=== PATIENT | female | born 1955 | race African-American/Black ===

== ENCOUNTER 2018-02-22 12:14 | Emergency (ER) | payer SELFPAY ==
[~2018-02-22] VITALS: Ht 157.5 cm; Wt 54.0 kg
[2018-02-22 13:20] LABS: BASOPHILS % 0.6 % (0.0-2.0); EOSINOPHILS % 0.7 % (0.0-5.0); HEMOGLOBIN. 10.9 g/dL (12.0-16.0); LYMPHOCYTES % 32.2 % (20.0-50.0); MEAN CORPUSCULAR HEMOGLOBIN 34.3 pg (28.0-32.0); MEAN PLATELET VOLUME 8.3 fl (7.4-10.4); MONOCYTES % 10.9 % (2.0-8.0); NEUTROPHILS % 55.6 % (40.0-76.0); PLATELET 59 x1000/uL (130-400); RED BLOOD CELL COUNT 3.17 mill/uL (4.2-5.4); RED CELL DISTRIBUTION WIDTH 14.8 % (11.6-14.6)
[2018-02-22 13:32] LABS: CHLORIDE 118 mEq/L (98-107)
[2018-02-22 13:47] LABS: ETHANOL BLOOD 337 mg/dL
[2018-02-22 14:34] LABS: CLARITY URINE CLEAR (CLEAR); COLOR URINE YELLOW (YELLOW); KETONES URINE NEGATIVE (NEGATIVE); LEUKOCYTE ESTERASE URINE NEGATIVE (NEGATIVE); NITRITE URINE NEGATIVE (NEGATIVE); OCCULT BLOOD URINE NEGATIVE (NEGATIVE); PH URINE 6.5 (4.5-8.0); PROTEIN URINE NEGATIVE (NEGATIVE); SPECIFIC GRAVITY URINE 1.007 (1.005-1.030); UROBILINOGEN URINE 0.2 E.U./dL (0.2-1.0)
[2018-02-22 14:58] LABS: *AMPHETAMINES SCREEN URINE NEGATIVE (NEGATIVE); *BARBITURATES SCREEN URINE NEGATIVE (NEGATIVE); *BENZODIAZEPINES SCREEN URINE NEGATIVE (NEGATIVE); *COCAINE SCREEN URINE NEGATIVE (NEGATIVE); CANNABINOID URINE SCREEN NEGATIVE (NEGATIVE); METHADONE URINE SCREEN NEGATIVE (NEGATIVE); OPIATES URINE SCREEN NEGATIVE (NEGATIVE); PHENCYCLIDINE URINE SCREEN NEGATIVE (NEGATIVE)
[2018-02-23] MEDS ORDERED: ACETAMINOPHEN 325MG TABLET PO ONE (08:30)
[2018-02-23 09:16] VITALS: BP 164/68
== END 2018-02-23 18:25 | disposition home or self-care (01) ==
LOC: ER 13:02
DX: F10.129 Alcohol abuse with intoxication, unspecified (principal)
CPT/HCPCS: 36415; 80053; 80305; 80307; 80329; 81003; 84443; 85025; 99284; G0482

== ENCOUNTER 2018-03-28 21:10 | Emergency (ER) | payer SELFPAY ==
[~2018-03-28] VITALS: Ht 167.6 cm; Wt 61.2 kg
[2018-03-29] MEDS ORDERED: ACETAMINOPHEN 325MG TABLET PO STA (06:34)
[2018-03-29 07:07] LABS: CHLORIDE 106 mEq/L (98-107)
[2018-03-29 07:08] LABS: BASOPHILS % 0.7 % (0.0-2.0); EOSINOPHILS % 0.6 % (0.0-5.0); HEMATOCRIT. 33.8 % (36.0-48.0); HEMOGLOBIN. 11.7 g/dL (12.0-16.0); LYMPHOCYTES % 47.4 % (20.0-50.0); MEAN CORPUSCULAR HEMOGLOBIN 34.7 pg (28.0-32.0); MEAN CORPUSCULAR VOLUME 100.2 fL (81.0-99.0); MEAN PLATELET VOLUME 8.9 fl (7.4-10.4); MONOCYTES % 8.2 % (2.0-8.0); NEUTROPHILS % 43.1 % (40.0-76.0); PLATELET 52 x1000/uL (130-400); RED BLOOD CELL COUNT 3.38 mill/uL (4.2-5.4); RED CELL DISTRIBUTION WIDTH 13.4 % (11.6-14.6)
[2018-03-29 07:35] LABS: KETONES URINE NEGATIVE (NEGATIVE); LEUKOCYTE ESTERASE URINE NEGATIVE (NEGATIVE); NITRITE URINE NEGATIVE (NEGATIVE); OCCULT BLOOD URINE 2+ (NEGATIVE); PROTEIN URINE NEGATIVE (NEGATIVE); SPECIFIC GRAVITY URINE 1.012 (1.005-1.030)
[2018-03-29 07:39] LABS: CLARITY URINE SL HAZY (CLEAR); COLOR URINE DARK YELLOW (YELLOW)
[2018-03-29 08:06] LABS: *AMPHETAMINES SCREEN URINE NEGATIVE (NEGATIVE)
[2018-03-29 08:07] LABS: *BARBITURATES SCREEN URINE NEGATIVE (NEGATIVE); *BENZODIAZEPINES SCREEN URINE NEGATIVE (NEGATIVE); *COCAINE SCREEN URINE NEGATIVE (NEGATIVE); METHADONE URINE SCREEN NEGATIVE (NEGATIVE)
[2018-03-29 08:08] LABS: CANNABINOID URINE SCREEN PRESUMTIVE POSITIVE (NEGATIVE); OPIATES URINE SCREEN NEGATIVE (NEGATIVE); PHENCYCLIDINE URINE SCREEN NEGATIVE (NEGATIVE)
[2018-03-29] MEDS ORDERED: ACETAMINOPHEN 325MG TABLET PO ONE (11:00)
[2018-03-29 16:15] VITALS: BP 127/82
== END 2018-03-29 16:24 | disposition home or self-care (01) ==
LOC: ER 21:26
DX: R10.84 Generalized abdominal pain (principal); F10.10 Alcohol abuse, uncomplicated; E11.9 Type 2 diabetes mellitus without complications; F17.200 Nicotine dependence, unspecified, uncomplicated; I10 Essential (primary) hypertension
CPT/HCPCS: 36415; 80053; 80305; 81003; 83690; 85025; 99284; G0482; Z7610

== ENCOUNTER 2018-03-29 23:14 | Emergency (ER) | payer MEDICAID ==
[~2018-03-29] VITALS: Ht 160 cm; Wt 65.0 kg
[2018-03-30 03:18] LABS: CLARITY URINE CLEAR (CLEAR); COLOR URINE YELLOW (YELLOW); KETONES URINE NEGATIVE (NEGATIVE); LEUKOCYTE ESTERASE URINE NEGATIVE (NEGATIVE); NITRITE URINE NEGATIVE (NEGATIVE); OCCULT BLOOD URINE NEGATIVE (NEGATIVE); PROTEIN URINE NEGATIVE (NEGATIVE); SPECIFIC GRAVITY URINE 1.008 (1.005-1.030)
[2018-03-30 04:19] LABS: CHLORIDE 109 mEq/L (98-107)
[2018-03-30 04:22] LABS: BASOPHILS % 0.4 % (0.0-2.0); EOSINOPHILS % 0.5 % (0.0-5.0); ETHANOL BLOOD 272 mg/dL; HEMATOCRIT. 30.3 % (36.0-48.0); HEMOGLOBIN. 10.6 g/dL (12.0-16.0); LYMPHOCYTES % 51.5 % (20.0-50.0); MEAN CORPUSCULAR HEMOGLOBIN 36.6 pg (28.0-32.0); MEAN CORPUSCULAR VOLUME 104.6 fL (81.0-99.0); MEAN PLATELET VOLUME 9.4 fl (7.4-10.4); MONOCYTES % 8.5 % (2.0-8.0); NEUTROPHILS % 39.1 % (40.0-76.0); RED CELL DISTRIBUTION WIDTH 13.1 % (11.6-14.6)
[2018-03-30 04:30] LABS: *AMPHETAMINES SCREEN URINE NEGATIVE (NEGATIVE); *BARBITURATES SCREEN URINE NEGATIVE (NEGATIVE); *BENZODIAZEPINES SCREEN URINE NEGATIVE (NEGATIVE)
[2018-03-30 04:31] LABS: *COCAINE SCREEN URINE NEGATIVE (NEGATIVE); CANNABINOID URINE SCREEN PRESUMTIVE POSITIVE (NEGATIVE); METHADONE URINE SCREEN NEGATIVE (NEGATIVE); OPIATES URINE SCREEN NEGATIVE (NEGATIVE); PHENCYCLIDINE URINE SCREEN NEGATIVE (NEGATIVE)
[2018-03-30] MEDS ORDERED: KETOROLAC 60MG/2ML VIAL IM STA (07:27)
[2018-03-30] MEDS ORDERED: HYDROCODONE/ACETAMINOPHEN 5/325MG TABLET PO SCH (08:00)
[2018-03-30 14:00] VITALS: BP 132/72
[2018-03-31 17:12] LABS: PLATELET 40 x1000/uL (130-400)
== END 2018-03-30 15:33 | disposition left against medical advice (07) ==
LOC: ER 03-30 01:09
DX: M16.0 Bilateral primary osteoarthritis of hip (principal); F10.129 Alcohol abuse with intoxication, unspecified; Y90.8 Blood alcohol level of 240 mg/100 ml or more; D69.6 Thrombocytopenia, unspecified; R10.84 Generalized abdominal pain; R03.0 Elevated blood-pressure reading, without diagnosis of hypertension; R42 Dizziness and giddiness; F12.90 Cannabis use, unspecified, uncomplicated; D61.818 Other pancytopenia; M51.36 Other intervertebral disc degeneration, lumbar region; Z59.0 Homelessness; Z90.710 Acquired absence of both cervix and uterus; Z86.59 Personal history of other mental and behavioral disorders
CPT/HCPCS: 36415; 72100; 73522; 80048; 80305; 80307; 80329; 81003; 85025; 93005; 96372; 99285; G0482; J1885

== ENCOUNTER 2018-06-18 16:40 | Inpatient (IN) | payer MEDICAID ==
[~2018-06-18] VITALS: Ht 162.6 cm; Wt 68.5 kg
[2018-06-18] MEDS ORDERED: SODIUM CHLORIDE 0.9% 1,000 ML IV ONE (17:03)
[2018-06-18] MEDS ORDERED: ONDANSETRON HCL 4MG/2ML VIAL IV STA (17:03)
[2018-06-18 17:46] LABS: HEMATOCRIT. 34.8 % (36.0-48.0); HEMOGLOBIN. 11.4 g/dL (12.0-16.0); MEAN CORPUSCULAR HEMOGLOBIN 35.1 pg (28.0-32.0); MEAN CORPUSCULAR VOLUME 107.5 fL (81.0-99.0); MEAN PLATELET VOLUME 10.1 fl (7.4-10.4); RED BLOOD CELL COUNT 3.24 mill/uL (4.2-5.4); RED CELL DISTRIBUTION WIDTH 14.5 % (11.6-14.6)
[2018-06-18 17:48] LABS: CHLORIDE 96 mEq/L (98-107)
[2018-06-18 17:49] LABS: PLATELET 29 x1000/uL (130-400)
[2018-06-18 17:52] LABS: AMMONIA 119 uMol/L (<32)
[2018-06-18 17:53] LABS: ETHANOL BLOOD 192 mg/dL
[2018-06-18 17:57] LABS: CREATINE KINASE 89 IU/L (26-192)
[2018-06-18 18:01] LABS: CARBAMAZEPINE < 0.5 ug/mL (4-12); PHENOBARBITAL < 2.1 ug/mL (15.0-40.0); VALPROIC ACID < 3.0 ug/mL (50-100)
[2018-06-18 18:11] LABS: PLATELET ESTIMATE MARKEDLY DECREASED
[2018-06-18 19:18] LABS: CLARITY URINE CLOUDY (CLEAR); COLOR URINE DARK YELLOW (YELLOW); KETONES URINE 1+ (NEGATIVE); LEUKOCYTE ESTERASE URINE 2+ (NEGATIVE); NITRITE URINE NEGATIVE (NEGATIVE); OCCULT BLOOD URINE TRACE (NEGATIVE); PROTEIN URINE 1+ (NEGATIVE); SPECIFIC GRAVITY URINE 1.016 (1.005-1.030)
[2018-06-18 19:21] LABS: PROTHROMBIN TIME > 100.0 sec (9.4-11.6)
[2018-06-18 19:23] LABS: INR > 10.0
[2018-06-18 19:46] LABS: *AMPHETAMINES SCREEN URINE NEGATIVE (NEGATIVE); *BARBITURATES SCREEN URINE NEGATIVE (NEGATIVE); *BENZODIAZEPINES SCREEN URINE NEGATIVE (NEGATIVE)
[2018-06-18 19:47] LABS: *COCAINE SCREEN URINE NEGATIVE (NEGATIVE); CANNABINOID URINE SCREEN PRESUMTIVE POSITIVE (NEGATIVE); METHADONE URINE SCREEN NEGATIVE (NEGATIVE); OPIATES URINE SCREEN NEGATIVE (NEGATIVE); PHENCYCLIDINE URINE SCREEN NEGATIVE (NEGATIVE)
[2018-06-18] MEDS ORDERED: PHYTONADIONE 10MG/ML AMP IM ONE (20:15)
[2018-06-18] MEDS ORDERED: CEFTRIAXONE 1 G PREMIX 50 ML IV ONE (20:15)
[2018-06-19] VITALS (103 sets, daily range): BP systolic 41–172; BP diastolic 17–109
[2018-06-19] MEDS ORDERED: MORPHINE SULFATE 4 MG/ML CPJ (NOT FOR IM USE) IV PRN (01:45)
[2018-06-19] MEDS ORDERED: ONDANSETRON 4MG ODT PO PRN ×2 (01:45→03:00)
[2018-06-19] MEDS ORDERED: ONDANSETRON HCL 4MG/2ML VIAL IV PRN ×3 (01:45→03:00)
[2018-06-19] MEDS ORDERED: SODIUM CHL 0.9% + KCL 20MEQ/L 1,000 ML IV SCH (03:00)
[2018-06-19] MEDS ORDERED: DEXTROSE 50% WATER 50ML SYRINGE IV PRN ×5 (03:30→12:15)
[2018-06-19] MEDS ORDERED: DEXTROSE 50% WATER 50ML SYRINGE IV STA (03:30)
[2018-06-19] MEDS ORDERED: DEXTROSE 50% WATER 50ML SYRINGE IV ONE ×2 (03:35→12:10)
[2018-06-19] MEDS ORDERED: DEXTROSE 50% WATER 50ML SYRINGE IV SCH (03:42)
[2018-06-19 04:02] LABS: BG BASE EXCESS -22.5 mmol/L (-2.0-2.0); BG CARBOXYHEMOGLOBIN 0.3 % (0.5-1.5); BG DEOXYHEMOGLOBIN 0.2 % (0.0-5.0); BG FRACTION INSPIRED OXYGEN 100; BG METHEMOGLOBIN 0.3 % (0.0-1.5); BG OXYGEN SATURATION 99.8 % (92.0-98.5); BG OXYHEMOGLOBIN 99.2 % (94.0-97.0); BG PCO2 28.5 mmHg (35.0-45.0); BG PH 7.011 (7.350-7.450); BG PO2 525.8 mmHg (75.0-100.0); BG SAMPLE SITE RIGHT FEMORAL; BG TIDAL VOLUME(mL) 500 mL; BG TOTAL HEMOGLOBIN 8.8 g/dL (12.0-18.0); BG VENT MODE VENT - A/C; BG VENT RATE 14 set
[2018-06-19] MEDS ORDERED: PROPOFOL 10MG/ML 100ML 100 ML IV PRN (04:30)
[2018-06-19] MEDS ORDERED: SODIUM BICARBONATE 8.4% 1 MEQ/ML 50ML SYR IV SCH (04:30)
[2018-06-19] MEDS: NOREPINEPHRINE 8 MG in DEXT 5% WATER 250 ML IV PRN ×2 (05:23→08:44)
[2018-06-19 05:55] LABS: HEMOGLOBIN 8.7 g/dL (12.0-16.0); MEAN CORPUSCULAR HEMOGLOBIN 35.9 pg (28.0-32.0); MEAN CORPUSCULAR VOLUME 116.2 fL (81.0-99.0); RED BLOOD CELL COUNT 2.41 mill/uL (4.2-5.4); RED CELL DISTRIBUTION WIDTH 15.5 % (11.6-14.6)
[2018-06-19] MEDS ORDERED: SODIUM BICARBONATE 150 MEQ in DEXTROSE 5% WATER 1,000 ML IV ONE (06:00)
[2018-06-19] MEDS ORDERED: SODIUM BICARBONATE 150 MEQ in DEXTROSE 5% WATER 1,000 ML IV SCH (06:00)
[2018-06-19 06:24] LABS: PLATELET 27 x1000/uL (130-400)
[2018-06-19] MEDS ORDERED: PANTOPRAZOLE 40MG DR TABLET PO SCH (06:30)
[2018-06-19 06:32] LABS: CHLORIDE 97 mEq/L (98-107)
[2018-06-19] MEDS ORDERED: PHENYLEPHRINE 20 MG in DEXT 5% WATER 248 ML IV PRN (06:54)
[2018-06-19 07:28] LABS: BG BASE EXCESS -19.1 mmol/L (-2.0-2.0); BG CARBOXYHEMOGLOBIN 0.2 % (0.5-1.5); BG DEOXYHEMOGLOBIN 1.1 % (0.0-5.0); BG METHEMOGLOBIN 0.3 % (0.0-1.5); BG OXYGEN SATURATION 98.9 % (92.0-98.5); BG OXYHEMOGLOBIN 98.4 % (94.0-97.0); BG PCO2 23.3 mmHg (35.0-45.0); BG PH 7.154 (7.350-7.450); BG PO2 189.2 mmHg (75.0-100.0); BG SAMPLE SITE RIGHT RADIAL; BG TIDAL VOLUME(mL) 500 mL; BG VENT MODE VENT - A/C; BG VENT RATE 22 set
[2018-06-19] MEDS ORDERED: SODIUM BICARBONATE 8.4% 1 MEQ/ML 50ML SYR IV NR ×4 (07:45→18:30)
[2018-06-19] MEDS ORDERED: FOLIC ACID 1MG TABLET PO SCH (09:00)
[2018-06-19] MEDS ORDERED: THIAMINE HCL 100MG TABLET PO SCH (09:00)
[2018-06-19] MEDS ORDERED: MULTIVITAMINS,THER W-MINERALS TABLET PO SCH (09:00)
[2018-06-19] MEDS ORDERED: LIDOCAINE HCL 1% 20ML VIAL (Pyxis) INJ ONE (09:37)
[2018-06-19] MEDS ORDERED: VASOPRESSIN 10 UNIT in SODIUM CHLORIDE 0.9% 99.5 ML IV PRN (09:45)
[2018-06-19] MEDS: PHENYLEPHRINE 40 MG in DEXT 5% WATER 246 ML IV PRN ×4 (10:12→22:03)
[2018-06-19] MEDS: NOREPINEPHRINE 32 MG in DEXT 5% WATER 468 ML IV PRN (10:18)
[2018-06-19] MEDS: VASOPRESSIN 10 UNIT in SODIUM CHLORIDE 0.9% 99.5 ML IV PRN ×3 (10:25→18:08)
[2018-06-19] MEDS ORDERED: LEVOFLOXACIN 500MG PREMIX 100 ML IV SCH (11:00)
[2018-06-19] MEDS: EPINEPHRINE 1 MG in SODIUM CHLORIDE 0.9% 249 ML IV PRN ×3 (11:09→22:43)
[2018-06-19] MEDS ORDERED: VANCOMYCIN 1250MG in DEXTROSE 5% WATER 250ML IV NR (12:00)
[2018-06-19] MEDS ORDERED: SODIUM BICARBONATE 7.5% 0.9 MEQ/ML 50ML SYR IV ONE ×2 (12:07→12:10)
[2018-06-19] MEDS ORDERED: EPINEPHRINE 0.1MG/ML (1:10,000) 10ML SYR ONE ×2 (12:07→12:10)
[2018-06-19 12:09] LABS: BG BASE EXCESS -11.8 mmol/L (-2.0-2.0); BG CARBOXYHEMOGLOBIN 1.1 % (0.5-1.5); BG DEOXYHEMOGLOBIN 2.1 % (0.0-5.0); BG HCO3 ACT 12.9 mmol/L (22.0-26.0); BG METHEMOGLOBIN 0.7 % (0.0-1.5); BG OXYGEN SATURATION 97.9 % (92.0-98.5); BG OXYHEMOGLOBIN 96.1 % (94.0-97.0); BG PCO2 24.3 mmHg (35.0-45.0); BG PH 7.344 (7.350-7.450); BG PO2 135.4 mmHg (75.0-100.0); BG SAMPLE SITE RIGHT RADIAL; BG TIDAL VOLUME(mL) 500 mL; BG VENT MODE VENT - A/C
[2018-06-19] MEDS ORDERED: MAGNESIUM SULFATE 4G IN WATER 100ML PREMIX IV ONE (12:10)
[2018-06-19] MEDS: BLOOD SUGAR DIAGNOSTIC STRIP TEST SCH ×2 (12:20→20:25)
[2018-06-19] MEDS: PANTOPRAZOLE SODIUM 40 MG/VIAL IV SCH ×2 (12:23→20:25)
[2018-06-19 14:00] LABS: PROTHROMBIN TIME > 100.0 sec (9.4-11.6)
[2018-06-19 14:02] LABS: HEMATOCRIT 12.7 % (36.0-48.0); HEMOGLOBIN 4.2 g/dL (12.0-16.0); INR > 10.0
[2018-06-19] MEDS: METRONIDAZOLE 500 MG PREMIX 100 ML IV SCH ×2 (14:10→22:03)
[2018-06-19] MEDS ORDERED: NORMAL SALINE 0.9% 10 ML SYR ONE (14:46)
[2018-06-19] MEDS ORDERED: VECURONIUM BROMIDE 10 MG/VIAL IV ONE (14:46)
[2018-06-19] MEDS ORDERED: CEFEPIME 2,000 MG in DEXT 5% WATER 100 ML IV SCH (16:30)
[2018-06-19] MEDS: SODIUM BICARBONATE 150 MEQ in DEXTROSE 5% WATER 1,000 ML IV SCH ×2 (16:35→23:22)
[2018-06-19] MEDS: POTASSIUM CHLORIDE INJ 40 MEQ in DEXT 5% WATER 250 ML IV SCH ×2 (16:36→20:59)
[2018-06-19] MEDS: OCTREOTIDE 1,000 MCG in SODIUM CHLORIDE 0.9% 100 ML IV SCH (16:37)
[2018-06-19] MEDS ORDERED: LACTULOSE 20G/30ML UDC PO SCH (17:00)
[2018-06-19] MEDS ORDERED: AMIKACIN SULFATE 440 MG in SODIUM CHLORIDE 0.9% 100 ML IV NR (17:30)
[2018-06-19 18:20] LABS: BG BASE EXCESS -20.7 mmol/L (-2.0-2.0); BG DEOXYHEMOGLOBIN 6.3 % (0.0-5.0); BG HCO3 ACT 6.9 mmol/L (22.0-26.0); BG METHEMOGLOBIN 0.8 % (0.0-1.5); BG OXYGEN SATURATION 93.6 % (92.0-98.5); BG OXYHEMOGLOBIN 91.9 % (94.0-97.0); BG PCO2 22.3 mmHg (35.0-45.0); BG SAMPLE SITE RIGHT RADIAL; BG TIDAL VOLUME(mL) 500 mL; BG TOTAL HEMOGLOBIN 6.1 g/dL (12.0-18.0); BG VENT MODE VENT - A/C; BG VENT RATE 28 set
[2018-06-19 23:27] LABS: HEMATOCRIT 23.5 % (36.0-48.0); HEMOGLOBIN 7.1 g/dL (12.0-16.0)
[2018-06-20] VITALS (71 sets, daily range): BP systolic 35–189; BP diastolic 17–78
[2018-06-20 00:09] LABS: CLARITY URINE TURBID (CLEAR); COLOR URINE DARK YELLOW (YELLOW); KETONES URINE NEGATIVE (NEGATIVE); LEUKOCYTE ESTERASE URINE 3+ (NEGATIVE); NITRITE URINE NEGATIVE (NEGATIVE); OCCULT BLOOD URINE 1+ (NEGATIVE); PROTEIN URINE 1+ (NEGATIVE); SPECIFIC GRAVITY URINE 1.011 (1.005-1.030)
[2018-06-20] MEDS: EPINEPHRINE 1 MG in SODIUM CHLORIDE 0.9% 249 ML IV PRN ×3 (00:22→05:23)
[2018-06-20] MEDS: PHENYLEPHRINE 40 MG in DEXT 5% WATER 246 ML IV PRN ×3 (02:03→13:45)
[2018-06-20] MEDS: NOREPINEPHRINE 32 MG in DEXT 5% WATER 468 ML IV PRN (04:14)
[2018-06-20] MEDS ORDERED: AMIKACIN SULFATE 300 MG in SODIUM CHLORIDE 0.9% 100 ML IV SCH (05:30)
[2018-06-20] MEDS: METRONIDAZOLE 500 MG PREMIX 100 ML IV SCH (06:00)
[2018-06-20 06:15] LABS: HEMATOCRIT. 28.8 % (36.0-48.0); MEAN CORPUSCULAR HEMOGLOBIN 31.4 pg (28.0-32.0); MEAN CORPUSCULAR VOLUME 100.8 fL (81.0-99.0); RED BLOOD CELL COUNT 2.86 mill/uL (4.2-5.4); RED CELL DISTRIBUTION WIDTH 16.6 % (11.6-14.6)
[2018-06-20 06:35] LABS: PLATELET 8 x1000/uL (130-400)
[2018-06-20] MEDS: VASOPRESSIN 10 UNIT in SODIUM CHLORIDE 0.9% 99.5 ML IV PRN ×2 (07:03→14:50)
[2018-06-20] MEDS: EPINEPHRINE 2 MG in SODIUM CHLORIDE 0.9% 498 ML IV PRN ×2 (07:05→14:04)
[2018-06-20 07:21] LABS: INR > 10.0; PARTIAL THROMBOPLASTIN TIME > 200.0 sec (23.4-31.0); PROTHROMBIN TIME > 100.0 sec (9.4-11.6)
[2018-06-20 07:29] LABS: NUCLEATED RED BLOOD CELLS 6 /100 WBC; PLATELET ESTIMATE MARKEDLY DECREASED
[2018-06-20 08:13] LABS: BG BASE EXCESS -23.2 mmol/L (-2.0-2.0); BG CARBOXYHEMOGLOBIN 0.1 % (0.5-1.5); BG DEOXYHEMOGLOBIN 11.1 % (0.0-5.0); BG FRACTION INSPIRED OXYGEN 50; BG HCO3 ACT 5.2 mmol/L (22.0-26.0); BG METHEMOGLOBIN 0.4 % (0.0-1.5); BG OXYGEN SATURATION 88.8 % (92.0-98.5); BG OXYHEMOGLOBIN 88.4 % (94.0-97.0); BG PCO2 18.6 mmHg (35.0-45.0); BG PH 7.062 (7.350-7.450); BG PO2 70.7 mmHg (75.0-100.0); BG SAMPLE SITE RIGHT RADIAL; BG TIDAL VOLUME(mL) 500 mL; BG TOTAL HEMOGLOBIN 8.6 g/dL (12.0-18.0); BG VENT MODE VENT - A/C; BG VENT RATE 30 set
[2018-06-20] MEDS: BLOOD SUGAR DIAGNOSTIC STRIP TEST SCH (08:28)
[2018-06-20] MEDS: PANTOPRAZOLE SODIUM 40 MG/VIAL IV SCH (08:31)
[2018-06-20 08:40] LABS: CHLORIDE 86 mEq/L (98-107)
[2018-06-20 08:43] LABS: AMYLASE 466 IU/L (25-115)
[2018-06-20] MEDS ORDERED: SODIUM BICARBONATE 8.4% 1 MEQ/ML 50ML SYR IV NR (08:45)
[2018-06-20] MEDS ORDERED: DEXTROSE 50% WATER 50ML SYRINGE IV PRN (09:00)
[2018-06-20 09:50] LABS: AMMONIA 391 uMol/L (<32)
[2018-06-20] MEDS ORDERED: BLOOD SUGAR DIAGNOSTIC STRIP TEST SCH (11:30)
[2018-06-20] MEDS ORDERED: INSULIN LISPRO 100 UNITS/ML SUBCUT SCH (12:00)
[2018-06-20] MEDS ORDERED: VANCOMYCIN 1 G PREMIX 200 ML IV SCH (12:00)
[2018-06-20] MEDS ORDERED: AMPICILLIN 2,000 MG in SODIUM CHLORIDE 0.9% 100 ML IV SCH (13:30)
[2018-06-20] MEDS: OCTREOTIDE 1,000 MCG in SODIUM CHLORIDE 0.9% 100 ML IV SCH (14:56)
[2018-06-20] MEDS ORDERED: AMPICILLIN 2000MG in SODIUM CHLORIDE 0.9% 100ML IV SCH (15:00)
== END 2018-06-20 18:00 | disposition expired | DRG 720 ==
LOC: ER 16:58 → EDBEDREQ 17:15 → 6WST 20:30 → EDBEDREQ 20:33 → EDBEDREQTM 20:33 → CANRESERV 22:27 → ENRESERV 22:27 → MICUSO 06-19 03:17
PROVIDERS: ADMIT Internal Medicine; ATTEND Internal Medicine
PROC: 30243L1 Transfusion of Nonautologous Fresh Plasma into Central Vein, Percutaneous Approach (ICD-10-PCS; 2018-06-18)
PROC: 30243K1 Transfusion of Nonautologous Frozen Plasma into Central Vein, Percutaneous Approach (ICD-10-PCS; 2018-06-18)
PROC: 5A1945Z Respiratory Ventilation, 24-96 Consecutive Hours (ICD-10-PCS; principal; 2018-06-19)
PROC: 0BH17EZ Insertion of Endotracheal Airway into Trachea, Via Natural or Artificial Opening (ICD-10-PCS; 2018-06-19)
PROC: 5A12012 Performance of Cardiac Output, Single, Manual (ICD-10-PCS; 2018-06-19)
PROC: 05HY33Z Insertion of Infusion Device into Upper Vein, Percutaneous Approach (ICD-10-PCS; 2018-06-19)
PROC: B54MZZA Ultrasonography of Right Upper Extremity Veins, Guidance (ICD-10-PCS; 2018-06-19)
PROC: 30243N1 Transfusion of Nonautologous Red Blood Cells into Central Vein, Percutaneous Approach (ICD-10-PCS; 2018-06-19)
PROC: 30243R1 Transfusion of Nonautologous Platelets into Central Vein, Percutaneous Approach (ICD-10-PCS; 2018-06-19)
PROC: 4A00X4Z Measurement of Central Nervous Electrical Activity, External Approach (ICD-10-PCS; 2018-06-20)
DX: A41.51 Sepsis due to Escherichia coli [E. coli] (principal); N17.0 Acute kidney failure with tubular necrosis; J96.00 Acute respiratory failure, unspecified whether with hypoxia or hypercapnia; I46.9 Cardiac arrest, cause unspecified; R65.21 Severe sepsis with septic shock; J18.9 Pneumonia, unspecified organism; K66.1 Hemoperitoneum; E43 Unspecified severe protein-calorie malnutrition; K85.90 Acute pancreatitis without necrosis or infection, unspecified; E87.4 Mixed disorder of acid-base balance; K70.31 Alcoholic cirrhosis of liver with ascites; D68.9 Coagulation defect, unspecified; N39.0 Urinary tract infection, site not specified; D64.9 Anemia, unspecified; E16.2 Hypoglycemia, unspecified; E83.51 Hypocalcemia; F12.90 Cannabis use, unspecified, uncomplicated; F41.9 Anxiety disorder, unspecified; E87.8 Other disorders of electrolyte and fluid balance, not elsewhere classified; E87.6 Hypokalemia; D69.59 Other secondary thrombocytopenia; F17.210 Nicotine dependence, cigarettes, uncomplicated; K57.91 Diverticulosis of intestine, part unspecified, without perforation or abscess with bleeding; N18.9 Chronic kidney disease, unspecified; G89.29 Other chronic pain; F10.10 Alcohol abuse, uncomplicated; K20.9 Esophagitis, unspecified; K52.9 Noninfective gastroenteritis and colitis, unspecified; M25.551 Pain in right hip; M25.552 Pain in left hip; K70.40 Alcoholic hepatic failure without coma; R40.2430 Glasgow coma scale score 3-8, unspecified time; Z66 Do not resuscitate; Z59.0 Homelessness; Z90.710 Acquired absence of both cervix and uterus; Z82.49 Family history of ischemic heart disease and other diseases of the circulatory system
CPT/HCPCS: 31500; 36415; 36569; 36600; 71045; 74176; 76700; 76937; 80048; 80053; 80076; 80156; 80165; 80184; 80185; 80305; 81003; 82140; 82150; 82248; 82375; 82550; 82805; 82962; 83036; 83605; 83690; 83735; 83880; 84100; 84443; 84484; 85014; 85018; 85025; 85027; 85610; 85730; 86850; 86900; 86920; 86927; 86945; 87040; 87077; 87086; 87186; 92950; 93306; 96361; 96365; 96372; 96375; 99285; A4216; C1725; C9113; G0482; J0278; J0290; J0692; J0696; J1815; J1956; J2354; J2370; J2405; J3370; J3430; J3475; J3480; J3490; J7030; J7040; J7050; J7060; J7070; P9016; P9017; P9034; A4315